=== PATIENT | female | born 1995 | race Caucasian/White ===

== ENCOUNTER 2017-01-15 17:09 | Emergency (ER) | payer BC ==
[~2017-01-15] VITALS: Ht 177.8 cm; Wt 65.1 kg
[~2017-01-15 17:09] MED LIST: BCPILLS PO; SPIR25TA PO
[2017-01-15 17:17] VITALS: BP 146/84; PULSE 88; TEMP 36.5; O2SAT 100; Ht 177.8 cm; Wt 65.1 kg
[2017-01-15] MEDS ORDERED: [UNRECOGNIZED DRUG - CODE] TOP (17:32)
[2017-01-15] MEDS ORDERED: IBUP200C14 PO (17:32)
[2017-01-15] MEDS ORDERED: NZRCR TOP (17:37)
[2017-01-15 18:49] LABS: BASO % 0.3 %; BASO ABS # 0.03 K/uL (0-0.2); COMPLETE YES; EOS % 0.3 %; IG% 0.4 %; LYMPH % 22.6 %; LYMPH ABS # 2.49 K/uL (1.2-3.4); MEAN CELL VOLUME 88.8 fL (80-100); MEAN CORPUSCULAR HEMOGLOBIN 30.3 pg (25-34); MEAN CORPUSCULAR HGB CONC 34.1 g/dl (32-36); MEAN PLATELET VOLUME 9.5 fL (7.4-10.4); NEUT % 71.4 %; PLATELET COUNT 244 K/uL (130-400); RED BLOOD COUNT 4.39 M/uL (4.2-5.4)
[2017-01-15 18:56] LABS: BLOOD UREA NITROGEN 11 mg/dl (7-18); BUN/CREATININE RATIO 15.8 (10-20); C-REACTIVE PROTEIN < 0.29 mg/dl (0-0.29); CALCIUM 9.1 mg/dl (8.5-10.1); CARBON DIOXIDE 26 mmol/L (21-32); CHLORIDE 107 mmol/L (98-107); CREATININE 0.71 mg/dl (0.60-1.20); GLUCOSE 87 mg/dl (70-99); POTASSIUM 3.6 mmol/L (3.5-5.1); SODIUM 138 mmol/L (136-145)
[2017-01-15 19:04] LABS: ANTI-STREP O SCR: 5YRS OR > POS IU/ml (<200 IU)
[2017-01-15 19:10] LABS: ANTI-STREP O TITRE: 5YR OR > 400 IU/ml (<200 IU)
[2017-01-15 19:35] LABS: LYME DISEASE AB IGG NEG (NEG); LYME DISEASE AB IGM NEG (NEG)
[2017-01-15] MEDS ORDERED: PRED20TA PO (19:47)
--- NOTE | 2017-01-15 19:49 | EMERGENCY ROOM VISIT NOTE ---
ED Visit Note First contact with patient: 17:26 CHIEF COMPLAINT: Skin rash 1 month HISTORY OF PRESENT ILLNESS: Patient is a 21 year old white female college student from [place] who presents to the emergency Department a copy by her parents for evaluation of a skin rash. It has been present since December 21. Patient reports a painless, nonpruritic red, slightly raised rash. She initially noticed it on her legs, abdomen and her arms. She was seen by multiple providers at home in [place], including several dermatologists, and an urgent care center. The etiology of the rash is unclear. She was treated with a topical ketoconazole 2% and fluticasone 0.05% cream that she mixed and applied topically to the lesions. She was also placed on a prednisone taper, she was treated with a six-day course initially, was off for a week, then a 10 day course, which she finished 4 days ago. Her symptoms cleared fell on the steroids, and she was fine until about 3 days ago when the rash recurred, this time and again on her arms, and now on her back and her chest. Possibilities discussed by the previous practitioners included ringworm, fungal infection, psoriasis, and pityriasis. The mother is concerned because no biopsy or blood work had been done. The patient reports that she had a mild URI prior to the onset of the rash. She denies any further symptoms. She denies any sore throat or fever. She denies any sick contacts. The rash does not involve the face, the palms or the soles. She has not used any new topical agents including soaps, lotions or detergents. No new medications. She has never had symptoms similar to this previously. REVIEW OF SYSTEMS: Review of systems as per HPI. All other systems reviewed were negative. 10 systems reviewed. PMH: Electronic medical records are reviewed and summarized as above/below. See Problem List. SOCIAL HISTORY: Patient is a college student from [place] who lives locally with roommates. She does not smoke. PHYSICAL EXAM: Vital Signs: Reviewed Nurse's notes. CONSTITUTIONAL: Patient is a pleasant, well-appearing 21-year-old white female who is awake and alert and in no acute distress. INTEGUMENTARY: The patient has a fairly confluent erythematous, maculopapular rash on her back, slight scale is noted. Lesions do gerry. Similar lesions are noted on the upper chest, and a few other areas are noted on the legs. There are no petechiae, no vesicles or bullae. There is no erythema, increased warmth or induration nurse over at [place] [facility]. No lymphangitic streaking. No lymphadenopathy is appreciated. EMERGENCY DEPARTMENT COURSE: The patient was seen and evaluated as above. Laboratory studies including CBC with differential, sedimentation rate, CRP, BMP , ASO and Lyme screen were collected. White count is just minimally elevated at 11,000, likely related to the recent prednisone use. Sedimentation rate and CRP are normal. Electrolytes and renal functions are normal. Lyme titer is negative. ASO is 400. All laboratory and diagnostic imaging studies were reviewed with the patient and her family at length. Based on physical exam, the rash on her back does appear more consistent with pityriasis rosea, however her presentation isn't necessarily classic for this. Regarding the elevated ASO titer, the patient does not have any symptoms consistent with an acute strep infection, and could be considered a strep carrier, therefore it was recommended that rather than treat with an antibiotic she had the ASO rechecked within the next 1-2 weeks at [facility]. The patient feels like she responds to the steroids , and would like to go on an additional course which was provided. She was encouraged to recheck with [facility] this week, and was given contact information for all local dermatology services that she can contact for a follow-up appointment. Differential diagnoses entertained included erythema multiforme, vasculitis, viral exanthem, drug reaction, tinea, psoriasis, eczema, psoriasis, among others. The patient was treated with Prednisone 60 mg orally prior to discharge. Medication reconciliation: I attest that I have personally reviewed the patient' s current medication list. Blood pressure screening : Patient was found to have normal blood pressure on screening and does not require follow-up. Problem List Medical Problems: (1) Acne Status: Chronic (2) Asthma Status: Chronic Current/Historical Medications Scheduled Control Pills ( Control Pills), 1 TAB PO DAILY Fluticasone Propionate (Fluticasone Propionate), 1 APPLN TOP BID Ibuprofen (Advil), 400 MG PO DAILY Ketoconazole (Ketoconazole), 1 APPLN TOP BID Prednisone (Prednisone), 0 PO DAILY Spironolactone (Aldactone), 25 MG PO DAILY Allergies Coded Allergies: No Known Allergies (Unverified , 01/15/17) Vital Signs Date Time Temp Pulse Resp B/P (MAP) Pulse Ox O2 Delivery O2 Flow Rate FiO2 01/15/17 17:17 36.5 88 18 146/84 100 Room Air Laboratory Results 01/15/17 18:30 Red Blood Count 4.39, Mean Corpuscular Volume 88.8, Mean Corpuscular Hemoglobin 30.3, Mean Corpuscular Hemoglobin Concent 34.1, Mean Platelet Volume 9.5, Neutrophils (%) (Auto) 71.4, Lymphocytes (%) (Auto) 22.6, Monocytes (%) (Auto) 5.0, Eosinophils (%) (Auto) 0.3, Basophils (%) (Auto) 0.3, Neutrophils # (Auto) 7.86, Lymphocytes # (Auto) 2.49, Monocytes # (Auto) 0.55, Eosinophils # (Auto) 0.03, Basophils # (Auto) 0.03 01/15/17 18:30 Test 01/15/17 18:30 White Blood Count 11.00 K/uL (4.8-10.8) Red Blood Count 4.39 M/uL (4.2-5.4) Hemoglobin 13.3 g/dL (12.0-16.0) Hematocrit 39.0 % (37-47) Mean Corpuscular Volume 88.8 fL (80-100) Mean Corpuscular Hemoglobin 30.3 pg (25-34) Mean Corpuscular Hemoglobin Concent 34.1 g/dl (32-36) Platelet Count 244 K/uL (130-400) Mean Platelet Volume 9.5 fL (7.4-10.4) Neutrophils (%) (Auto) 71.4 % Lymphocytes (%) (Auto) 22.6 % Monocytes (%) (Auto) 5.0 % Eosinophils (%) (Auto) 0.3 % Basophils (%) (Auto) 0.3 % Neutrophils # (Auto) 7.86 K/uL (1.4-6.5) Lymphocytes # (Auto) 2.49 K/uL (1.2-3.4) Monocytes # (Auto) 0.55 K/uL (0.11-0.59) Eosinophils # (Auto) 0.03 K/uL (0-0.5) Basophils # (Auto) 0.03 K/uL (0-0.2) RDW Standard Deviation 40.9 fL (36.4-46.3) RDW Coefficient of Variation 12.7 % (11.5-14.5) Immature Granulocyte % (Auto) 0.4 % Immature Granulocyte # (Auto) 0.04 K/uL (0.00-0.02) Erythrocyte Sedimentation Rate 2 mm/hr (0-21) Anion Gap 5.0 mmol/L (3-11) Est Creatinine Clear Calc Drug Dose 129.9 ml/min Estimated GFR () 142.1 Estimated GFR (Non- 122.6 BUN/Creatinine Ratio 15.8 (10-20) Calcium Level 9.1 mg/dl (8.5-10.1) C-Reactive Protein < 0.29 mg/dl (0-0.29) Lyme Disease IgG Antibody NEG (NEG) Lyme Disease IgM Antibody NEG (NEG) Anti-Streptolysin O Antibody Screen POS IU/ml (<200 IU) Anti-Streptolysin O Antibody Titer 400 IU/ml (<200 IU) Medications Administered Medications (Trade) Dose Ordered Sig/Jazmine Route Start Time Stop Time Status Last Admin Dose Admin Prednisone (PredniSONE TAB) 60 mg NOW STAT PO 01/15/17 19:43 01/15/17 19:45 DC 01/15/17 19:57 60 MG Departure Information Impression Primary Impression: Skin rash Prescriptions Prednisone (Prednisone) 20 Mg Tab 0 PO DAILY, #30 TAB 3 DAILY FOR 5 DAYS, THEN 2 DAILY FOR 5 DAYS, THEN 1 DAILY FOR 5 DAYS. Prov: Alicia Woods PA 01/15/17 Referrals [facility] (PCP) Maria Luz Carrington M.D. [facility] Elisa Long MD [facility] Eva Haile MD [facility] D[facility] Patient Instructions My [facility] Additional Instructions Prednisone 20mg: Once daily until the prescription is finished. It is best to take this earlier in the day as some patients note occasional difficulty falling asleep when taken in the late evening. Follow up with [facility] for recheck this week. Call dermatology on Tuesday to set up a follow up appointment.
== END 2017-01-15 19:59 | disposition home or self-care (01) ==
LOC: C.EDB 17:11 → C.EDD 19:59
DX: R21 Rash and other nonspecific skin eruption (principal)

== ENCOUNTER → 2017-01-17 | Outpatient (CLI) | payer BC, OTHER ==
[~2017-01-17] MED LIST changes: +IBUP200C14 PO; +NZRCR TOP; +PRED20TA PO; +[UNRECOGNIZED DRUG - CODE] TOP
== END | disposition home or self-care (01) ==
LOC: C.PATHSPEC 16:14
PROVIDERS: ATTEND Dermatology
DX: L40.9 Psoriasis, unspecified (principal)

== ENCOUNTER → 2017-01-17 | Outpatient (CLI) | payer BC, OTHER | END | disposition home or self-care (01) | LOC: C.LABSPEC 16:19 | PROVIDERS: ATTEND Dermatology | DX: L40.9 Psoriasis, unspecified (principal) ==

== ENCOUNTER 2017-01-24 00:54 | Emergency (ER) | payer BC ==
[~2017-01-24] VITALS: Ht 175.3 cm; Wt 64.3 kg
[2017-01-24 01:04] VITALS: TEMP 36.2; Ht 175.3 cm; Wt 64.3 kg
[2017-01-24] MEDS ORDERED: ACETAMINOPHEN 500 MG TAB PO STA (01:12)
[2017-01-24 02:17] VITALS: BP 130/80; PULSE 78; O2SAT 96
--- NOTE | 2017-01-24 02:21 | EMERGENCY ROOM VISIT NOTE ---
History First contact with patient: 01:07 Chief Complaint: HEAD INJURY (MINOR) Stated Complaint: HEAD INJURY History of Present Illness The patient is a 21 year old female who presents to the Emergency Room with complaints of head injury who fell tonight when she slipped on water and struck her head on the ground. Patient's been taking alcohol tonight. Patient states she landed on her bottom and then hit her head. Patient states her friends helped her up and she fell again striking her head on a bench. Patient states she lost consciousness briefly. Patient complains of a headache and feeling lightheaded. Patient states she has been drinking vodka throughout the day. Patient denies chest pain, dyspnea, neck pain, facial pain, dental pain, bowel sounds, vision problems, abdominal pain, vomiting, diarrhea. Review of Systems See HPI for pertinent positives & negatives. A total of 10 systems reviewed and were otherwise negative. Past Medical/Surgical History Medical Problems: (1) Acne (2) Asthma Social History Smoking Status: Never Smoker Smokeless Tobacco Use: No Alcohol Use: occasionally Drug Use: none Marital Status: in relationship Occupation Status: [employer] student Current/Historical Medications Scheduled Control Pills ( Control Pills), 1 TAB PO DAILY Physical Exam Vital Signs Date Time Temp Pulse Resp B/P (MAP) Pulse Ox O2 Delivery O2 Flow Rate FiO2 01/24/17 01:20 18 98 01/24/17 01:04 36.2 83 18 127/84 97 Room Air Physical Exam VITALS: Vitals are noted on the nurse's note and reviewed by myself. Vital signs stable. GENERAL: Pleasant female, in no acute distress, nondiaphoretic, well-developed well-nourished. SKIN: The skin was without rashes, erythema, edema, or bruising. There is no tenting of the skin. Capillary reflex less than 2 seconds. HEAD: Normocephalic atraumatic. Face nontender to palpation EARS: External auditory canals clear, tympanic membranes pearly shepard without erythema or effusion bilaterally. EYES: Pupils equal round and reactive to light and accommodation. Conjunctivae without injection, sclerae without icterus. Extraocular movements intact. NOSE: Patent, turbinates without inflammation or discharge. No sinus tenderness. MOUTH: Mucous membranes moist. Pharynx without erythema or exudate. Uvula midline. Airway patent. Tongue does not deviate. NECK: Supple without nuchal rigidity. No lymphadenopathy. No thyromegaly. Cervical spine is nontender. No JVD. HEART: Regular rate and rhythm without murmurs gallops or rubs. LUNGS: Clear to auscultation bilaterally without wheezes, rales or rhonchi. No dullness to percussion. No retractions or accessory muscle use. ABDOMEN: Positive bowel sounds x 4. Normal tympanic percussion. Soft, nontender, without masses or organomegaly. Priest sign negative. No guarding or rebound tenderness. MUSCULOSKELETAL: No muscle atrophy, erythema, or edema noted. NEURO: Patient was alert and oriented to person place and time. Normal sensation to light and sharp touch. No focal neurological deficits. Cranial nerves II-12 grossly intact. No pronator drift. Cerebellar exam intact Medical Decision & Procedures Medications Administered Medications (Trade) Dose Ordered Sig/Jazmine Route Start Time Stop Time Status Last Admin Dose Admin Acetaminophen (Tylenol Tab) 1,000 mg NOW STAT PO 01/24/17 01:12 01/24/17 01:14 DC 01/24/17 01:20 1,000 MG ED Course Prior records/ancillary studies reviewed. Triage Nursing notes reviewed. Additional history obtained from friend. The patient's history was concerning for traumatic head injury Differential diagnosis: Etiologies such as concussion, contusion, fracture, subdural hematoma, epidural hematoma, intraparenchymal hemorrhage, as well as other traumatic pathologies were entertained. Physical examination findings: As above. ER treatment provided: P.o. Tylenol On reassessment the patient felt better. Diagnostics interpreted by me: Imaging studies: Head CT negative for intracranial bleed or fracture per radiology It appears the patient has a head injury. Patient has been drinking alcohol and had a positive LOC so further imaging was ordered. This is unremarkable. Patient was counseled on head injury signs and symptoms and verbalized understanding this. She was strongly encouraged to abstain from alcohol this week and strenuous activities and to follow-up health services or here in the ER sooner for headache, fevers, confusion, worsening signs or symptoms or as needed. By the evaluation outlined above emergent etiologies such as fracture, subdural hematoma, epidural hematoma, intraparenchymal hemorrhage, as well as others were deemed relatively unlikely. The pt informed about the findings as listed above. All questions were answered and pleased with the treatment. Return instructions were outlined and the patient was discharged in stable condition. Referral: The patient was referred back to their primary care physician for follow-up in 2 to 3 days for a recheck of the current condition. Medical Decision As above Head Trauma GCS Score: 15 Medication Reconcilliation Current Medication List: was personally reviewed by me Blood Pressure Screening Patient's blood pressure: Normal blood pressure Impression Primary Impression: Closed head injury Departure Information Dispostion Home / Self-Care Condition GOOD Referrals [facility] (PCP) Forms HOME CARE DOCUMENTATION FORM, IMPORTANT VISIT INFORMATION Patient Instructions My [facility], ED Head Injury Closed Additional Instructions Read head injury handout and return for any symptoms. Tylenol 1000 mg as needed for pain (Maximum 3000 mg Tylenol in 24 hr period). Avoid alcohol and contact sports/activities for one week and follow up with family doctor prior to returning to these activities if still symptomatic. Ice and elevate head. If your symptoms persist more than a week then follow up with the concussion clinic. Call [phone]. Return to ER sooner for headache, fevers, confusion, worsening signs or symptoms or as needed. Problem Qualifiers Primary Impression: Closed head injury Encounter type: initial encounter Qualified Codes: S09.90XA - Unspecified injury of head, initial encounter
--- NOTE | 2017-01-24 07:18 | DIAGNOSTIC IMAGING REPORT ---
HEAD WITHOUT CONTRAST (CT) CLINICAL HISTORY: 21 years-old Female with Head Injury, ETOH. Acute head injury with alcohol intoxication. TECHNIQUE: Multiple axial CT images of the head were obtained without contrast. A dose lowering technique was utilized adhering to the principles of ALARA. CT DOSE: 537.48 mGy.cm COMPARISON: None. FINDINGS: No acute intracranial hemorrhage, midline shift, mass, large territorial ischemia or abnormal extra-axial collection. The calvarium is intact. The paranasal sinuses, mastoid air cells, and middle ear cavities are clear. IMPRESSION: No acute intracranial abnormality. The above report was generated using voice recognition software. It may contain grammatical, syntax or spelling errors. Electronically signed by: Stefan Malagon M.D. 01/24/2017 7:17 AM Dictated Date/Time: 01/24/2017 7:16 AM
== END 2017-01-24 02:17 | disposition home or self-care (01) ==
LOC: C.EDB 00:54 → C.EDC 02:17
DX: S06.9X9A Unspecified intracranial injury with loss of consciousness of unspecified duration, initial encounter (principal); W01.198A Fall on same level from slipping, tripping and stumbling with subsequent striking against other object, initial encounter; J45.909 Unspecified asthma, uncomplicated

== ENCOUNTER → 2017-02-08 | Outpatient (CLI) | payer BC ==
[~2017-02-08] MED LIST changes: -IBUP200C14 PO; -NZRCR TOP; -PRED20TA PO; -SPIR25TA PO; -[UNRECOGNIZED DRUG - CODE] TOP
== END | disposition home or self-care (01) ==
LOC: C.PATHSPEC 17:21
PROVIDERS: ATTEND Dermatology
DX: R23.4 Changes in skin texture (principal)